=== PATIENT | female | born 1975 | race African-American/Black ===

== ENCOUNTER → 2017-03-15 | Outpatient (CLI) | payer OTHER ==
[~2017-03-15] MED LIST: FERR324T4 PO
[2017-03-15 13:49] LABS: HEMATOCRIT 28.7 % (35.0-46.0); MEAN CELL VOLUME 68.7 FL (80.0-100.0); MEAN CORPUSCULAR HEMOGLOBIN 20.7 PG (27.0-34.0); MEAN CORPUSCULAR HGB CONC 30.2 % (32.0-36.0); PLATELET COUNT 276 TH/MM3 (150-450); RED BLOOD COUNT 4.17 MIL/MM3 (4.00-5.30); RED CELL DISTRIBUTION WIDTH 18.9 % (11.6-17.2); REVIEW FLAG FINAL; WHITE BLOOD COUNT 4.7 TH/MM3 (4.0-11.0)
[2017-03-15 14:14] LABS: ANION GAP 8 MEQ/L (5-15); BICARBONATE 25.4 MEQ/L (21.0-32.0); BLOOD UREA NITROGEN 7 MG/DL (7-18); CHLORIDE 108 MEQ/L (98-107); POTASSIUM 3.9 MEQ/L (3.5-5.1); SODIUM (NA) 141 MEQ/L (136-145)
[2017-03-15 14:19] LABS: ALKALINE PHOSPHATASE 62 U/L (45-117); ALT (GPT) 14 U/L (10-53); AST (GOT) 14 U/L (15-37); GLOMERULAR FILTRATION RATE 73 ML/MIN (>89); GLUCOSE,FASTING 87 MG/DL (74-99); TOTAL BILIRUBIN ADULT 0.3 MG/DL (0.2-1.0)
== END ==
LOC: CLAB 13:08
PROVIDERS: ATTEND Family Medicine
DX: D64.9 Anemia, unspecified (principal)
CPT/HCPCS: 36415; 80053; 85027

== ENCOUNTER 2017-08-16 13:48 | Emergency (ER) | payer OTHER ==
[~2017-08-16] VITALS: Ht 154.9 cm; Wt 60.0 kg
[~2017-08-16 13:48] MED LIST changes: +BUSP10TA PO; +CITA20TA4 PO; +QUET5TAB PO; +RISP3 PO; +TRAZ50TA12 PO; +TYLETAB34 PO
[2017-08-16 13:49] VITALS: BP 124/60; PULSE 84; RESP 18; TEMP 98.3; O2SAT 99
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
== END 2017-08-16 14:46 | disposition left against medical advice (07) ==
LOC: NEPD 13:48
DX: S09.90XD Unspecified injury of head, subsequent encounter (principal); Y00.XXXD Assault by blunt object, subsequent encounter
CPT/HCPCS: 99281